=== PATIENT | female | born 1985 | race Caucasian/White ===

== ENCOUNTER 2017-05-28 20:08 | Inpatient (IN) | payer MEDICAID ==
[~2017-05-28] VITALS: Ht 170.2 cm; Wt 91.0 kg
[~2017-05-28 20:08] MED LIST: CEPH250T PO; OXYC30TA PO
[2017-05-28] MEDS ORDERED: PRENTAB7 (21:54)
[2017-05-28] MEDS ORDERED: METH40TA PO (21:54)
[2017-05-28] MEDS ORDERED: NS 500 ML BOLUS IV PRN (22:00)
[2017-05-28] MEDS ORDERED: MINERAL OIL 10 ML VIAL TOPICAL PRN (22:00)
[2017-05-28] MEDS ORDERED: NS 1000 ML IV PRN (22:00)
[2017-05-28] MEDS ORDERED: LIDOCAINE HCL 1% 50 ML VIAL I-DERMAL PRN (22:00)
[2017-05-28] MEDS ORDERED: LACTATED RINGER'S 1000 ML BOLUS IV PRN (22:00)
[2017-05-28] MEDS ORDERED: LACTATED RINGER'S 1000 ML INJ 1,000 ML IV SCH (22:00)
[2017-05-28] MEDS ORDERED: OXYTOCIN 30 UNITS 500ML PREMIX IV ONE (22:00)
[2017-05-28] MEDS ORDERED: LACTATED RINGER'S 1000 ML IV SCH (22:00)
[2017-05-28] MEDS ORDERED: DINOPROSTONE 10 MG INSERT-LEAVE FOR 12 HOURS VAGINAL ONE (22:00)
[2017-05-28] MEDS ORDERED: ONDANSETRON HCL 4 MG/2 ML VIAL IV PUSH PRN (22:00)
[2017-05-28] MEDS ORDERED: CITRIC ACID-SODIUM CITRATE LIQ 30 ML UDC PO SCH (22:00)
[2017-05-28] MEDS ORDERED: NS 1000 ML OTHER PRN (22:00)
[2017-05-28] MEDS ORDERED: LIDOCAINE HCL 1% 50 ML VIAL INFIL PRN (22:00)
[2017-05-28 22:18] VITALS: RESP 18
[2017-05-28 22:19] VITALS: BP 126/81; PULSE 72
[2017-05-28 22:20] LABS: AUTOMATED NEUTROPHIL # 4.2 TH/MM3 (1.8-7.7); BASOPHIL % 0.4 % (0.0-2.0); EOSINOPHIL # 0.1 TH/MM3 (0-0.4); EOSINOPHIL % 2.2 % (0.0-4.0); HEMATOCRIT 28.4 % (35.0-46.0); HEMOGLOBIN 9.7 GM/DL (11.6-15.3); LYMPH % 22.5 % (9.0-44.0); LYMPHOCYTE # 1.5 TH/MM3 (1.0-4.8); MEAN CELL VOLUME 82.9 FL (80.0-100.0); MEAN CORPUSCULAR HEMOGLOBIN 28.3 PG (27.0-34.0); MEAN CORPUSCULAR HGB CONC 34.2 % (32.0-36.0); MEAN PLATELET VOLUME 8.9 FL (7.0-11.0); MONO % 9.8 % (0.0-8.0); MONOCYTE # 0.6 TH/MM3 (0-0.9); NEUT % 65.1 % (16.0-70.0); PLATELET COUNT 193 TH/MM3 (150-450); RED BLOOD COUNT 3.42 MIL/MM3 (4.00-5.30); RED CELL DISTRIBUTION WIDTH 14.3 % (11.6-17.2); WHITE BLOOD COUNT 6.5 TH/MM3 (4.0-11.0)
[2017-05-28 22:46] LABS: AMORPHOUS SEDIMENT, URINE RARE; BACTERIA, URINE RARE /hpf; BILIRUBIN, URINE NEG (NEG); BLOOD, URINE NEG (NEG); GLUCOSE,URINE NEG (NEG); KETONE, URINE NEG (NEG); MUCUS URINE FEW /lpf (OCC); NITRITE,URINE NEG (NEG); PH, URINE 6.5 (5.0-8.5); SQUAMOUS EPITHELIAL CELL URINE 1 /hpf (0-5); URINE COLOR YELLOW (YELLW/STRAW); URINE LEUKOCYTE ESTERASE NEG (NEG)
[2017-05-28 23:46] LABS: ALBUMIN 2.3 GM/DL (3.4-5.0); DIRECT BILIRUBIN ADULT 0.1 MG/DL (0.0-0.2)
[2017-05-29] VITALS (30 sets, daily range): BP systolic 111–144; BP diastolic 64–98; PULSE 57–82; RESP 16–20; TEMP 97.5–98.6
[2017-05-29] LABS: TOTAL PROTEIN 6.3 GM/DL (6.4-8.2)
[2017-05-29 00:01] LABS: INDIRECT BILIRUBIN 0.1 MG/DL (0.0-0.8); TOTAL BILIRUBIN ADULT 0.2 MG/DL (0.2-1.0)
[2017-05-29] MEDS ORDERED: fentaNYL 2MCG-BUPIV 0.125% INJ 100 ML ONE (04:09)
[2017-05-29] MEDS ORDERED: ePHEDrine/NS 25 MG/5 ML SYRINGE IV PUSH PRN (05:15)
[2017-05-29] MEDS ORDERED: fentaNYL 2MCG-BUPIV 0.125% 100 ML EPIDURAL SCH (06:00)
[2017-05-29] MEDS ORDERED: NO SYSTEM NARCOTICS PRN (06:00)
[2017-05-29] MEDS ORDERED: DO NOT ADMINISTER ANTICOAGULANTS PRN (06:00)
[2017-05-29] MEDS ORDERED: ALUMINUM/MAGNESIUM/SIMETH 30 ML CUP PO PRN (06:30)
[2017-05-29] MEDS ORDERED: SODIUM CHLORIDE 0.9% FLUSH 10 ML FLUSH IV FLUSH PRN (06:30)
[2017-05-29] MEDS ORDERED: BENZOCAINE 20% TOPICAL SPRAY 60 ML CAN TOPICAL PRN (06:30)
[2017-05-29] MEDS ORDERED: ONDANSETRON ODT 4 MG TAB PO PRN (06:30)
[2017-05-29] MEDS ORDERED: ACETAMINOPHEN 325 MG TAB PO PRN (06:30)
[2017-05-29] MEDS ORDERED: ZOLPIDEM TARTRATE 5 MG TAB PO PRN (06:30)
[2017-05-29] MEDS ORDERED: OXYTOCIN 30 UNITS-500ML PREMIX 500 ML IV SCH (06:30)
[2017-05-29] MEDS ORDERED: WITCH HAZEL 50%/GLYCERIN 12.5% 40 PAD JAR TOPICAL PRN (06:30)
--- NOTE | 2017-05-29 06:38 | PD.OB.DELI ---
Weeks gestation: 37 Anesthesia: Epidural Episiotomy: None Vaginal Delivery: Normal Presentation: Occiput anterior Nuchal Cord: None Delayed cord clamping (45 sec): Yes : Male Delivery date: May 29, 2017 Delivery time: 06:07 One Minute : 8 Five Minute : 9 Weight: 3730 gm Placenta: Spontaneous delivery Laceration: Vaginal laceration, 1 deg Repair: Chromic running Estimated blood loss: 200 Additional Information abruption in the 2 nd stage with resulting bradycardia , pt pushed well and after the head delivered a large amount of grossly bloody fluid followed , the placenta had a large blood clot around the perimeter Reji Tinajero II, MD May 29, 2017 06:38
--- NOTE | 2017-05-29 06:51 | HHI.OB ---
Subjective Post Day: 0 Remarks Called by Nithya at 6 am that patient complete with SROM and bloody fluid. Arrived at 6:20 with delivery completed by Reji Tinajero with jackson abruptio. already hypertonic and crying very loudly. Suspect exposure to additional substance (other than her methadone) between the time she was told to come to [facility] (around noon) and when she arrived at change of shift. Labored with cervidil in place. Comfortable now. Will need methdone. case management to be called. Do not suspect that urine drug screen will accurately reflect her use. Objective Vitals/I&O Vital Signs Date Time Temp Pulse Resp B/P (MAP) Pulse Ox O2 Delivery O2 Flow Rate FiO2 05/29/17 06:28 73 05/29/17 06:28 130/75 (93) 05/29/17 06:26 18 05/29/17 06:02 82 114/64 (81) 05/29/17 06:00 70 05/29/17 05:47 16 05/29/17 05:46 69 111/69 (83) 05/29/17 05:31 62 16 115/69 (84) 05/29/17 05:16 16 05/29/17 05:15 63 125/79 (94) 05/29/17 05:03 18 05/29/17 05:02 73 131/74 (93) 05/29/17 04:53 18 05/29/17 04:52 67 132/80 (97) 05/29/17 04:48 69 134/82 (99) 05/29/17 04:42 75 133/92 (106) 05/29/17 04:37 72 18 139/79 (99) 05/29/17 04:11 67 142/90 (107) 05/29/17 04:10 20 05/29/17 02:45 97.8 18 05/29/17 02:45 68 136/91 (106) 05/29/17 00:06 71 118/75 (89) 05/29/17 00:06 97.5 05/29/17 00:05 18 05/28/17 22:19 72 126/81 (96) 05/28/17 22:18 18 Objective Remarks GENERAL: Well-nourished, well-developed patient. CARDIOVASCULAR: Regular rate and rhythm without murmurs, gallops, or rubs. RESPIRATORY: Breath sounds equal bilaterally. No accessory muscle use. ABDOMEN/GI: Abdomen soft, non-tender. Fundus: Firm, non-tender at umbilicus. GENITOURINARY: Light to moderate bleeding. EXTREMITIES: No cyanosis or edema, non-tender, without signs of DVT. Medications and IVs Current Medications Medications (Trade) Dose Ordered Sig/Vishal Route Start Time Stop Time Status Last Admin Lactated Ringer's 1,000 ml @ 125 mls/hr Q8H IV 05/28/17 22:00 Sodium Chloride 1,000 ml @ 0 mls/hr UNSCH PRN OTHER 05/28/17 22:00 Lactated Ringer's 1,000 ml @ 125 mls/hr Q8H IV 05/28/17 22:00 05/28/17 23:13 Lactated Ringer's 1,000 ml @ 3,000 mls/hr BOLUS PRN IV 05/28/17 22:00 Sodium Chloride 500 ml @ 1,000 mls/hr BOLUS PRN IV 05/28/17 22:00 Sodium Chloride 1,000 ml @ 100 mls/hr Q10H PRN IV 05/28/17 22:00 (Xylocaine 1% Inj (50 ml)) 0.1 ml UNSCH X1 PRN I-DERMAL 05/28/17 22:00 05/29/17 21:59 (Bicitra Liq) 30 ml SCHOOL BUS MECHANIC PO 05/28/17 22:00 05/31/17 21:59 05/28/17 23:18 (Zofran Inj) 4 mg Q6H PRN IV PUSH 05/28/17 22:00 (fentaNYL INJ) 50 mcg Q1H PRN IV PUSH 05/28/17 22:00 (fentaNYL INJ) 100 mcg Q1H PRN IV PUSH 05/28/17 22:00 05/29/17 02:51 (Xylocaine 1% Inj (50 ml)) 10 ml UNSCH X1 PRN INFIL 05/28/17 22:00 05/29/17 21:59 (Muri-Lube Oil) 10 ml UNSCH PRN TOPICAL 05/28/17 22:00 Miscellaneous Information No systemic narcotics to be given except... UNSCH PRN .XX 05/29/17 06:00 05/30/17 05:59 Miscellaneous Information DO NOT ADMINISTER ANY ANTICOAGUL... UNSCH PRN .XX 05/29/17 06:00 05/30/17 05:59 Fentanyl/ Bupivacaine HCl 100 ml @ 0 mls/hr TITRATE EPIDURAL 05/29/17 06:00 (ePHEDrine/NS 25 MG/5 ML SYR) 10 mg UNSCH PRN IV PUSH 05/29/17 05:15 05/30/17 05:14 (NS Flush) 2 ml BID IV FLUSH 05/29/17 09:00 (NS Flush) 2 ml UNSCH PRN IV FLUSH 05/29/17 06:30 Oxytocin 500 ml @ 100 mls/hr CONTINUOUS IV 05/29/17 06:30 05/29/17 11:29 (Tylenol) 650 mg Q4H PRN PO 05/29/17 06:30 (Motrin) 800 mg Q8H PRN PO 05/29/17 06:30 (Americaine 20% Top Spr) 1 spray Q4H PRN TOPICAL 05/29/17 06:30 (Tucks Pads) 1 applic QID PRN TOPICAL 05/29/17 06:30 (Dedra-Colace) 2 tab Q12H PRN PO 05/29/17 06:30 (Ambien) 5 mg HS PRN PO 05/29/17 06:30 (M-M-R Ii Inj) 0.5 ml ONCE ONCE SQ 05/29/17 16:00 05/29/17 16:01 (Boostrix Inj) 0.5 ml ONCE ONCE IM 05/29/17 16:00 05/29/17 16:01 (Mag-Al Plus Susp Liq) 15 ml Q8H PRN PO 05/29/17 06:30 (Zofran Odt) 4 mg Q6H PRN PO 05/29/17 06:30 Audrey Umanzor MD May 29, 2017 06:51
--- NOTE | 2017-05-29 06:57 | HHI.DCPOC ---
Discharge Care Plan Report Symptoms to Your Doctor -Temperature above 100.5 degrees -Redness, of incision or excessive or foul smelling drainage -Unusual pain or calf pain -Increased vaginal bleeding -Painful or difficulty urinating -Feelings of extreme sadness or anxiety after 2 weeks Goals to Promote Your Health * To prevent worsening of your condition and complications * To maintain your health at the optimal level Directions to Meet Your Goals Take your medications as prescribed Follow your dietary instruction Follow activity as directed Ensure plenty of rest for recovery Drink fluids for hydration Keep your appointments as scheduled Take your immunizations and boosters as scheduled If your symptoms worsen call your PCP, if no PCP go to Urgent Care Center or Emergency Room Smoking is Dangerous to Your Health. Avoid second hand smoke Call the 24-hour crisis hotline for domestic abuse at Audrey Umanzor MD May 29, 2017 06:57
--- NOTE | 2017-05-29 07:14 | MH ---
cc: Audrey Umanzor MD DATE OF ADMISSION: 05/28/2017 INDICATION FOR ADMISSION: Cervidil cervical ripening and induction of labor for oligohydramnios and preeclampsia without severe features. HISTORY OF PRESENT CONDITION: The patient is a 30-year-old G3, P2-0-0-2, with LMP in July of 2016 and EDC of 06/14/2017 by a 6-1/2-week ultrasound. In the third trimester she has been watched closely for minimally elevated blood pressure and mild proteinuria. surveillance has been reassuring. Today on the a biophysical profile reveals an REHANA of 3.6. Her blood pressure is 130/90. She has 2+ protein in the urine. Her cervix is 2+, 80%, but extremely posterior. The baby is about 0 station. Estimated weight, according to her ultrasound today, is in the 96th percentile and she has a grade 3 placenta. She denies severe headache, nausea, vomiting or blurred vision. She does look edematous and plethoric and has significant lower extremity edema. She has normal reflexes. Her history is also significant for polysubstance abuse with IV drug abuse during the first half of the . We tried Subutex, but she did not do well on that and she returned to the methadone treatment center where she is currently getting 100 mg of methadone on a daily basis. She has hep C, type 2B. She has many tattoos. She does smoke 1/2 a pack a day. She currently denies any substance use other than her methadone. OB HISTORY: First delivery was in 2011, a vaginal delivery of a male at [facility] with Dr. Rose and she has custody of that child. The second baby in December 2014 was induced at [facility]. We transferred her there because of a high risk situation. The baby was born with some pulmonary issues and adopted out. REVIEW OF SYSTEMS: She tends to get frequent urinary tract infections, but otherwise has no other chronic or systemic medical issues. PAST SURGICAL HISTORY: She has had no surgeries. PHYSICAL EXAMINATION: GENERAL: Well-developed, well-nourished female, somewhat plethoric and has a red face and arms today. VITAL SIGNS: Her weight is 190. Her blood pressure is 130/90. She has 2+ protein. NECK: No thyroid enlargement. LUNGS: Clear to auscultation. HEART: Rate and rhythm are regular with a 2/6 systolic ejection murmur. ABDOMEN: Fundus measures 40. is vertex. The cervix is 2 cm, 80%, but extremely posterior and infant is at 0 station, 0 to -1. EXTREMITIES: Show 2+ edema. No abscesses or recent track forte. There are many tattoos. IMPRESSION: 1. Late /early term intrauterine with preeclampsia without severe features. 2. Polysubstance use. 3. Oligohydramnios. 4. Hepatitis C. PLAN: Bring in and get routine lab work, including a drug screen, LFTs and continue her methadone through her hospitalization. Give her Cervidil today and rupture of the membranes in the morning. Risks, benefits, expectations, and alternatives have been discussed in detail with anesthesia and she is ready to proceed. MD GENET You/SB , 11:26 AM , 11:51 AM
[2017-05-29] MEDS ORDERED: SODIUM CHLORIDE 0.9% FLUSH 10 ML FLUSH IV FLUSH SCH (09:00)
[2017-05-29] MEDS: METHADONE HCL 10 MG TAB PO SCH (10:13)
[2017-05-29] MEDS: IBUPROFEN 800 MG TAB PO PRN ×2 (11:50→20:55)
[2017-05-29] MEDS ORDERED: MEASLES, MUMPS, RUBELLA VACCINE 0.5 ML VIAL SQ ONE (16:00)
[2017-05-29] MEDS ORDERED: DIPHTH/TETANUS/ACEL PERTUSSIS (BOOSTER) 0.5 ML VIAL/PFS IM ONE (16:00)
[2017-05-29] MEDS: DOCUSATE SODIUM 50 MG/SENNA 8.6 MG TAB PO PRN (20:54)
[2017-05-30 08:00] VITALS: BP 135/80; PULSE 64; RESP 16; TEMP 97.8; O2SAT 100
[2017-05-30] MEDS: IBUPROFEN 800 MG TAB PO PRN ×2 (09:15→19:08)
[2017-05-30] MEDS: METHADONE HCL 10 MG TAB PO SCH (09:15)
[2017-05-30] MEDS: DOCUSATE SODIUM 50 MG/SENNA 8.6 MG TAB PO PRN (09:16)
--- NOTE | 2017-05-30 11:46 | HHI.OB ---
Subjective Post Day: 1 Remarks Mom is up with who is now scoring and in NICU no issues reported neonatologists encouraging her to pump Objective Vitals/I&O Vital Signs Date Time Temp Pulse Resp B/P (MAP) Pulse Ox O2 Delivery O2 Flow Rate FiO2 05/30/17 08:00 97.8 16 100 05/30/17 08:00 64 135/80 (98) 05/29/17 20:39 97.9 68 18 144/84 (104) Objective Remarks GENERAL: Well-nourished, well-developed patient. CARDIOVASCULAR: Regular rate and rhythm without murmurs, gallops, or rubs. RESPIRATORY: Breath sounds equal bilaterally. No accessory muscle use. ABDOMEN/GI: Abdomen soft, non-tender. Fundus: Firm, non-tender at umbilicus. GENITOURINARY: Light to moderate bleeding. EXTREMITIES: No cyanosis or edema, non-tender, without signs of DVT. Medications and IVs Current Medications Medications (Trade) Dose Ordered Sig/Vishal Route Start Time Stop Time Status Last Admin Lactated Ringer's 1,000 ml @ 125 mls/hr Q8H IV 05/28/17 22:00 Sodium Chloride 1,000 ml @ 0 mls/hr UNSCH PRN OTHER 05/28/17 22:00 Lactated Ringer's 1,000 ml @ 125 mls/hr Q8H IV 05/28/17 22:00 05/28/17 23:13 Lactated Ringer's 1,000 ml @ 3,000 mls/hr BOLUS PRN IV 05/28/17 22:00 Sodium Chloride 500 ml @ 1,000 mls/hr BOLUS PRN IV 05/28/17 22:00 Sodium Chloride 1,000 ml @ 100 mls/hr Q10H PRN IV 05/28/17 22:00 (Bicitra Liq) 30 ml RESOURCE DEVELOPMENT MANAGER PO 05/28/17 22:00 05/31/17 21:59 05/28/17 23:18 (Zofran Inj) 4 mg Q6H PRN IV PUSH 05/28/17 22:00 (fentaNYL INJ) 50 mcg Q1H PRN IV PUSH 05/28/17 22:00 (fentaNYL INJ) 100 mcg Q1H PRN IV PUSH 05/28/17 22:00 05/29/17 02:51 (Muri-Lube Oil) 10 ml UNSCH PRN TOPICAL 05/28/17 22:00 Fentanyl/ Bupivacaine HCl 100 ml @ 0 mls/hr TITRATE EPIDURAL 05/29/17 06:00 (NS Flush) 2 ml BID IV FLUSH 05/29/17 09:00 (NS Flush) 2 ml UNSCH PRN IV FLUSH 05/29/17 06:30 (Tylenol) 650 mg Q4H PRN PO 05/29/17 06:30 (Motrin) 800 mg Q8H PRN PO 05/29/17 06:30 05/30/17 09:15 (Americaine 20% Top Spr) 1 spray Q4H PRN TOPICAL 05/29/17 06:30 05/29/17 10:12 (Tucks Pads) 1 applic QID PRN TOPICAL 05/29/17 06:30 05/29/17 10:11 (Dedra-Colace) 2 tab Q12H PRN PO 05/29/17 06:30 05/30/17 09:16 (Ambien) 5 mg HS PRN PO 05/29/17 06:30 (Mag-Al Plus Susp Liq) 15 ml Q8H PRN PO 05/29/17 06:30 (Zofran Odt) 4 mg Q6H PRN PO 05/29/17 06:30 (Dolophine) 100 mg DAILY PO 05/29/17 09:00 05/30/17 09:15 Assessment/Plan Assessment and Plan maternal status stable PPD 1 on methadone chronic anemia in NICU mom encouraged to pump presuming methadone her only recent exposure. Audrey Uamnzor MD May 30, 2017 11:46
[2017-05-30] MEDS ORDERED: METH10TA PO (11:48)
[2017-05-30 15:30] LABS: AUTOMATED NEUTROPHIL # 6.7 TH/MM3 (1.8-7.7); BASOPHIL % 0.1 % (0.0-2.0); EOSINOPHIL # 0.1 TH/MM3 (0-0.4); EOSINOPHIL % 0.9 % (0.0-4.0); HEMATOCRIT 31.1 % (35.0-46.0); HEMOGLOBIN 10.3 GM/DL (11.6-15.3); LYMPHOCYTE # 1.4 TH/MM3 (1.0-4.8); MEAN CELL VOLUME 83.8 FL (80.0-100.0); MEAN CORPUSCULAR HEMOGLOBIN 27.8 PG (27.0-34.0); MEAN CORPUSCULAR HGB CONC 33.2 % (32.0-36.0); MEAN PLATELET VOLUME 8.4 FL (7.0-11.0); MONOCYTE # 0.4 TH/MM3 (0-0.9); PLATELET COUNT 223 TH/MM3 (150-450); RED BLOOD COUNT 3.71 MIL/MM3 (4.00-5.30); RED CELL DISTRIBUTION WIDTH 14.6 % (11.6-17.2); WHITE BLOOD COUNT 8.6 TH/MM3 (4.0-11.0)
[2017-05-30 21:07] VITALS: BP 147/87; PULSE 78; RESP 18; TEMP 98
[2017-05-31 08:50] VITALS: BP 110/80; PULSE 96; RESP 18; TEMP 97.7
[2017-05-31] MEDS: METHADONE HCL 10 MG TAB PO SCH (08:52)
[2017-05-31] MEDS: IBUPROFEN 800 MG TAB PO PRN (08:57)
--- NOTE | 2017-05-31 10:09 | HHI.OB ---
Subjective Post Day: 2 Remarks feeling well ambulating and visiting baby in NICU states Methadone clinic does not want her to use my 3 day script with medicaid will continue daily $17 dosing at the clinic beginning tomorrow denies any other substance use looking into stay close in peds getting electric breast pump Objective Vitals/I&O Vital Signs Date Time Temp Pulse Resp B/P (MAP) Pulse Ox O2 Delivery O2 Flow Rate FiO2 05/30/17 21:07 98.0 78 18 147/87 (107) Objective Remarks GENERAL: Well-nourished, well-developed patient. CARDIOVASCULAR: Regular rate and rhythm without murmurs, gallops, or rubs. RESPIRATORY: Breath sounds equal bilaterally. No accessory muscle use. ABDOMEN/GI: Abdomen soft, non-tender. Fundus: Firm, non-tender at umbilicus. GENITOURINARY: Light to moderate bleeding. EXTREMITIES: No cyanosis or edema, non-tender, without signs of DVT. Medications and IVs Current Medications Medications (Trade) Dose Ordered Sig/Vishal Route Start Time Stop Time Status Last Admin Lactated Ringer's 1,000 ml @ 125 mls/hr Q8H IV 05/28/17 22:00 Sodium Chloride 1,000 ml @ 0 mls/hr UNSCH PRN OTHER 05/28/17 22:00 Lactated Ringer's 1,000 ml @ 125 mls/hr Q8H IV 05/28/17 22:00 05/28/17 23:13 Lactated Ringer's 1,000 ml @ 3,000 mls/hr BOLUS PRN IV 05/28/17 22:00 Sodium Chloride 500 ml @ 1,000 mls/hr BOLUS PRN IV 05/28/17 22:00 Sodium Chloride 1,000 ml @ 100 mls/hr Q10H PRN IV 05/28/17 22:00 (Bicitra Liq) 30 ml EXCAVATOR BACKHOE OPERATOR PO 05/28/17 22:00 05/31/17 21:59 05/28/17 23:18 (Zofran Inj) 4 mg Q6H PRN IV PUSH 05/28/17 22:00 (fentaNYL INJ) 50 mcg Q1H PRN IV PUSH 05/28/17 22:00 (fentaNYL INJ) 100 mcg Q1H PRN IV PUSH 05/28/17 22:00 05/29/17 02:51 (Muri-Lube Oil) 10 ml UNSCH PRN TOPICAL 05/28/17 22:00 Fentanyl/ Bupivacaine HCl 100 ml @ 0 mls/hr TITRATE EPIDURAL 05/29/17 06:00 (NS Flush) 2 ml BID IV FLUSH 05/29/17 09:00 (NS Flush) 2 ml UNSCH PRN IV FLUSH 05/29/17 06:30 (Tylenol) 650 mg Q4H PRN PO 05/29/17 06:30 (Motrin) 800 mg Q8H PRN PO 05/29/17 06:30 05/31/17 08:57 (Americaine 20% Top Spr) 1 spray Q4H PRN TOPICAL 05/29/17 06:30 05/29/17 10:12 (Tucks Pads) 1 applic QID PRN TOPICAL 05/29/17 06:30 05/29/17 10:11 (Dedra-Colace) 2 tab Q12H PRN PO 05/29/17 06:30 05/30/17 09:16 (Ambien) 5 mg HS PRN PO 05/29/17 06:30 (Mag-Al Plus Susp Liq) 15 ml Q8H PRN PO 05/29/17 06:30 (Zofran Odt) 4 mg Q6H PRN PO 05/29/17 06:30 (Dolophine) 100 mg DAILY PO 05/29/17 09:00 05/31/17 08:52 Assessment/Plan Assessment and Plan maternal status stable PPD 1 on methadone chronic anemia infant in NICU mom encouraged to pump presuming methadone her only recent exposure. PPD 2 stable PPD2 on 100 mg methadone daily home with ibuprofen RTO 2 weeks to discuss contraception will do stay close will discuss hep c treatment at [place] or Audrey Villanueva MD May 31, 2017 10:08
== END 2017-05-31 14:04 | disposition home or self-care (01) | DRG 774 ==
LOC: H2EB 20:08 → H1EA 05-29 09:33
PROVIDERS: ADMIT Obstetrics & Gynecology; ATTEND Obstetrics & Gynecology
PROC: 3E0P7VZ Introduction of Hormone into Female Reproductive, Via Natural or Artificial Opening (ICD-10-PCS; 2017-05-28)
PROC: 10E0XZZ Delivery of Products of Conception, External Approach (ICD-10-PCS; principal; 2017-05-29)
PROC: 0HQ9XZZ Repair Perineum Skin, External Approach (ICD-10-PCS; 2017-05-29)
PROC: 00HU33Z Insertion of Infusion Device into Spinal Canal, Percutaneous Approach (ICD-10-PCS; 2017-05-29)
PROC: 3E0R3BZ Introduction of Anesthetic Agent into Spinal Canal, Percutaneous Approach (ICD-10-PCS; 2017-05-29)
DX: O41.03X0 Oligohydramnios, third trimester, not applicable or unspecified (principal); O45.93 Premature separation of placenta, unspecified, third trimester; F19.20 Other psychoactive substance dependence, uncomplicated; O98.42 Viral hepatitis complicating childbirth; O99.324 Drug use complicating childbirth; O14.94 Unspecified pre-eclampsia, complicating childbirth; O99.89 Other specified diseases and conditions complicating pregnancy, childbirth and the puerperium; O99.02 Anemia complicating childbirth; O70.0 First degree perineal laceration during delivery; D64.9 Anemia, unspecified; R00.1 Bradycardia, unspecified; B19.20 Unspecified viral hepatitis C without hepatic coma; Z3A.37 37 weeks gestation of pregnancy; Z37.0 Single live birth
CPT/HCPCS: 59025; 80076; 80307; 81001; 82728; 85025; 86762; 86900; 86901; 87641; 88307; 90715; G0481; J3010; J7120

== ENCOUNTER 2017-07-06 22:51 | Emergency (ER) | payer MEDICAID ==
[~2017-07-06] VITALS: Ht 170.2 cm; Wt 80.0 kg
[~2017-07-06 22:51] MED LIST changes: -CEPH250T PO; +METH10TA PO; +METH40TA PO; -OXYC30TA PO; +PRENTAB7
[2017-07-06 23:17] VITALS: BP 132/77; PULSE 84; RESP 18; TEMP 98.3; O2SAT 99
[2017-07-06] MEDS ORDERED: ACETAMINOPHEN 325 MG TAB PO ONE (23:45)
--- NOTE | 2017-07-06 23:46 | PD ---
HPI Chief Complaint: Lump, Cyst, Hernia Time Seen by Provider: 23:33 Travel History International Travel<30 days: No Contact w/Intl Traveler<30days: No Traveled to known affect area: No History of Present Illness HPI 31yo F on methadone here with c/o painful lump in left breast for 2-3 days. Pt has been breast feeding for 1.5 months and had no problems. [place] warm but no documented fever. Denies any nipple discharge other than milk. Denies any trauma, chest pain, sob, n/v, abdominal pain, focal weakness or numbness. Denies any family or personal history of breast cancer. PFSH Past Medical History Cancer: No Cardiovascular Problems: No Endocrine: No Gastrointestinal Disorders: No Genitourinary: No Immune Disorder: No Implanted Vascular Access Dvce: No Musculoskeletal: No Neurologic: No Psychiatric: No Reproductive: No Respiratory: No ?: Not Past Surgical History Other Surgery: No Social History Alcohol Use: No Tobacco Use: Yes Substance Use: No Allergies-Medications (Allergen,Severity, Reaction): Coded Allergies: No Known Allergies (Verified Adverse Reaction, Unknown, 05/29/17) Reported Meds & Prescriptions Reported Meds & Active Scripts Active Keflex (Cephalexin) 500 Mg Cap 500 Mg PO Q6H 7 Days Methadone (Methadone HCl) 10 Mg Tab 100 Mg PO DAILY 3 Days Reported Methadone (Methadone HCl) 40 Mg Tab 100 Mg PO DAILY Vitamins Tablet (Pnv No.95/Ferrous Fum/Folic AC) 28 Mg Iron-800 Mcg Tablet Review of Systems Except as stated in HPI: all other systems reviewed are Neg Physical Exam Narrative GENERAL: 31yo F not in distress. SKIN: Focused skin assessment warm/dry. HEAD: Atraumatic. Normocephalic. EYES: Pupils equal and round. No scleral icterus. No injection or drainage. ENT: No nasal bleeding or discharge. Mucous membranes pink and moist. NECK: Trachea midline. No JVD. CARDIOVASCULAR: Regular rate and rhythm. No murmur appreciated. RESPIRATORY: No accessory muscle use. Clear to auscultation. Breath sounds equal bilaterally. BREAST: Left breast: +lump palpated at 5 o'clock that is tender to touch. No fluctuance. No erythema on skin. No nipple bleeding or discharge. No retraction of nipple. No axillary lymph nodes. Right breast normal. GASTROINTESTINAL: Abdomen soft, non-tender, nondistended. MUSCULOSKELETAL: No obvious deformities. No clubbing. No cyanosis. No edema. NEUROLOGICAL: Awake and alert. No obvious cranial nerve deficits. Motor grossly within normal limits. Normal speech. PSYCHIATRIC: Appropriate mood and affect; insight and judgment normal. Data Data Last Documented VS Vital Signs Date Time Temp Pulse Resp B/P (MAP) Pulse Ox O2 Delivery O2 Flow Rate FiO2 07/06/17 23:17 98.3 84 18 132/77 (95) 99 Orders Orders Us Breast Unilateral (07/06/17 ) Acetaminophen (Tylenol) (07/06/17 23:45) Ed Discharge Order (07/07/17 01:37) Cephalexin (Keflex) (07/07/17 01:45) MDM Medical Decision Making Medical Screen Exam Complete: Yes Emergency Medical Condition: Yes Differential Diagnosis Clogged duct vs. mass vs. abscess Narrative Course 31yo F with painful lump in left breast. Pt given acetaminophen for pain. US breast pending, will sign out to my PA to follow up. Pt is well appearing. Diagnosis Primary Impression: Breast lump Scripts Cephalexin (Keflex) 500 Mg Cap 500 MG PO Q6H for Infection for 7 Days, #28 CAP 0 Refills Prov: Elida Bass DO 07/07/17 Elida Bass DO July 06, 2017 23:46
--- NOTE | 2017-07-07 01:22 | RADRPT ---
EXAM DATE/TIME: 07/07/2017 00:53 [place] COMPARISON: No previous studies available for comparison. INDICATIONS : Left breast lump. Patient is currently breast-feeding. MEDICAL HISTORY : None. SURGICAL HISTORY : None. ENCOUNTER: Initial ACUITY: 2 days PAIN SCORE: 6/10 LOCATION: Left breast_ 4 oclock, 3cm from nipple FINDINGS: A targeted left breast ultrasound study was performed in the area of palpable concern and demonstrate s a complex cystic lesion with septations. There is no internal color flow. The mass measures approxi mately 2.9 1.8 x 2.8 cm in diameter. This is located at the 4: 00 position 3 cm from the nipple. CONCLUSION: Complex cystic lesion likely representing a galactocele in this lactating patient. Gentry Medrano MD on July 07, 2017 at 1:19 Board Certified Radiologist. This report was verified electronically.
[2017-07-07] MEDS ORDERED: CEPH-460 PO (01:37)
--- NOTE | 2017-07-07 01:42 | PD ---
Physical Exam Date Seen by Provider: July 07, 2017 Time Seen by Provider: 01:39 Data Data Last Documented VS Vital Signs Date Time Temp Pulse Resp B/P (MAP) Pulse Ox O2 Delivery O2 Flow Rate FiO2 07/06/17 23:17 98.3 84 18 132/77 (95) 99 Orders Orders Us Breast Unilateral (07/06/17 ) Acetaminophen (Tylenol) (07/06/17 23:45) Ed Discharge Order (07/07/17 01:37) Cephalexin (Keflex) (07/07/17 01:45) [facility] Medical Record Reviewed: Yes Supervised Visit with SANDY: Yes Interpretation(s) Last 24 hours Impressions Breast Ultrasound 07/06/17 0000 Signed Impressions: Service Date/Time: Friday, July 07, 2017 00:53 - CONCLUSION: Complex cystic lesion likely representing a galactocele in this lactating patient. Gentry Medrano MD Differential Diagnosis . Narrative Course Patient's ultrasound does not show an obvious loculated abscess. Patient has swelling consistent with a galactocele. Patient is given Keflex 500 mg p.o. She is advised to massage and use warm compresses and continue to breast-feed. Patient states understanding. This is mastitis with galactocele Diagnosis Primary Impression: Breast lump Additional Impression: Mastitis with galactocele Patient Instructions: General Instructions Additional Instruction: Rest. Warm compresses. Massage her breast. Keflex. Continue to breast-feed. Contact your lactating surgical product sales consultant. Follow-up with your SECURITY ASSURANCE SPECIALIST. Return to the ER if any problems. Med/Other Pt SpecificInfo: Prescription(s) given Scripts Cephalexin (Keflex) 500 Mg Cap 500 MG PO Q6H for Infection for 7 Days, #28 CAP 0 Refills Prov: Elida Bass DO 07/07/17 Disposition: 01 DISCHARGE HOME Condition: Stable Navneet Lang July 07, 2017 01:42
[2017-07-07] MEDS ORDERED: CEPHALEXIN MONOHYDRATE 500 MG CAP PO ONE (01:45)
== END 2017-07-07 02:09 | disposition home or self-care (01) ==
LOC: NEPD 22:51
DX: N63.20 Unspecified lump in the left breast, unspecified quadrant (principal); N64.89 Other specified disorders of breast; Z72.0 Tobacco use
CPT/HCPCS: 76642; 99284